=== PATIENT | male | born 1965 | race Caucasian/White ===

== ENCOUNTER → 2018-06-11 | Outpatient (REF) ==
--- NOTE | 2018-06-12 03:50 | REP ---
Clinical: Pain and disability. Technique: AP, lateral, coned-down views of the lumbar spine. Findings: Three views of the lumbosacral spine demonstrate satisfactory alignment and lordosis without acute fracture / compression injury or subluxation. Mild/moderate multilevel degenerative changes include endplate sclerosis with very early marginal spurring. Disc spaces appear relatively maintained. Neural foramen appear patent. Subtle associated hypertrophic facet changes at L5-S1 are also identified. Atherosclerotic disease involving the aorta and iliac arteries. Impression: Mild multilevel spondylosis predominantly involving L5-S1. No acute fracture / compression injury or subluxation. Electronically Signed by Noah Lopez MD 06/12/2018 03:42 A
== END ==
LOC: M SMT 10:17
PROVIDERS: ATTEND Internal Medicine
DX: Z00.00 Encounter for general adult medical examination without abnormal findings (principal)